=== PATIENT | male | born 1980 | race Caucasian/White ===

== ENCOUNTER → 2017-11-12 | Outpatient (CLI) | payer OTHER, MEDICAID | LOC: FIMAGING 10:46 | PROVIDERS: ATTEND Specialist | DX: Z46.6 Encounter for fitting and adjustment of urinary device (principal); Z93.9 Artificial opening status, unspecified ==

== ENCOUNTER 2017-12-09 12:51 | Observation (INO) | payer OTHER, MEDICAID ==
[~2017-12-09 12:51] MED LIST: ceFAZolin 2 GM/SWFI 2 GM/20 ML SYR IVP ONE
[2017-12-09] MEDS ORDERED: ONDANSETRON DISINTEGRATING 4 MG TAB PO ONE (12:58)
[2017-12-09 13:45] LABS: PLATELET COUNT 230 10^3/uL (150-400)
[2017-12-09] MEDS ORDERED: HYDROmorphONE/DILAUDID 2 MG/ML INJ IVP ONE (13:46)
--- NOTE | 2017-12-09 13:46 | EDPHY ---
HPI/HX/ROS/PE/MDM Narrative: CHIEF COMPLAINT: Right flank pain, nausea, fever, chills HPI: The patient is a 37 y/o male with a history of a ureteral stent placement (12/06) and ulcerative colitis complaining of right flank pain, nausea, fever, and chills. After the stent was placed, 3 days ago, he began to dry heave and have blood in his urine. He initially had pain while urinating, but it has been improving. After the stent placement, he was supposed to follow up with a urologist but was unable to due to the pain. No chest pain, shortness of breath , headache, paresthesias or numbness. REVIEW OF SYSTEMS: Aside from elements discussed in the HPI, a comprehensive 10-point review of systems was reviewed and is negative. PMH: Ureteral stent due to adhesions, ulcerative colitis, colostomy bag SOCIAL HISTORY: Lives in [place], single, not employed PHYSICAL EXAM: General: Patient is alert Appears uncomfortable and in pain. ENT: Eyes are normal to inspection. ENT inspection normal. Neck: Normal inspection. Full range of motion. Respiratory: No respiratory distress. Breath sounds normal bilaterally. Cardiovascular: Regular rate and rhythm. Strong peripheral pulses. Normal cap refill. Abdomen: Diffuse abdominal tenderness to palpation. Colostomy bag in place. There are no peritoneal signs. There are normal bowel sounds. Back: Normal to inspection. No tenderness to palpation. Skin: Normal color. No rash. Warm and dry. Extremities: Normal appearance. Full range of motion. Neuro: Oriented x3. Normal motor function. Normal sensory function. ED Course: 1436: Abdominopelvic CT ordered following abdominal x-ray findings. 1509: Patient is still having abdominal pain; additional 1mg IV Dilaudid administered. 1525: Spoke with radiologist, patient's AP CT reveals right hydronephrosis and a malfunction with the right ureteral stent. 1552: Consulted with Dr. Watson, urologist, he will consult on this patient and replace the ureteral stent today. 1554: Reassessed patient and discussed imaging findings. I have also discussed plan to replace the ureteral stent; he is comfortable with this plan. - Data Points Imaging Results: Imaging Impressions Abdomen X-Ray 12/09/17 13:46 Impression: Internalized right ureteral stent unchanged configuration since [address] 12/09/17 14:35 Impression: 1. Dysfunctional internalized right ureteral stent. Moderate to severe right hydronephrosis despite well positioned stent. No obstructing calculus or mass. 2. Right nephrolithiasis. 3. Stigmata of total colectomy. Bowel pattern within normal limits. 4. Sacroiliitis, presumably enteropathic. Findings discussed with emergency department physician, Angelo Lee MD on December 09, 2017 at 3:25 p.m. Imaging: Discussed imaging studies w/ body recall instructor Radiologist, I viewed and interpreted images myself Laboratory Results: Laboratory Results 12/09/17 13:32 12/09/17 13:32 12/09/17 12/09/17 12/09/17 14:20 13:32 13:32 WBC 6.41 10^3/uL 10^3/uL (3.80-9.50) RBC 5.59 10^6/uL 10^6/uL (4.40-6.38) Hgb 16.1 g/dL g/dL (13.7-17.5) Hct 46.0 % % (40.0-51.0) MCV 82.3 fL fL (81.5-99.8) MCH 28.8 pg pg (27.9-34.1) MCHC 35.0 g/dL g/dL (32.4-36.7) RDW 13.2 % % (11.5-15.2) Plt Count 230 10^3/uL 10^3/uL (150-400) MPV 10.0 fL fL (8.7-11.7) Neut % (Auto) 57.9 % % (39.3-74.2) Lymph % (Auto) 29.0 % % (15.0-45.0) [facility] % (Auto) 10.1 % % (4.5-13.0) Eos % (Auto) 1.6 % % (0.6-7.6) Baso % (Auto) 1.1 % % (0.3-1.7) Nucleat RBC Rel Count 0.0 % % (0.0-0.2) Absolute Neuts (auto) 3.71 10^3/uL 10^3/uL (1.70-6.50) Absolute Lymphs (auto) 1.86 10^3/uL 10^3/uL (1.00-3.00) Absolute Monos (auto) 0.65 10^3/uL 10^3/uL (0.30-0.80) Absolute Eos (auto) 0.10 10^3/uL 10^3/uL (0.03-0.40) Absolute Basos (auto) 0.07 10^3/uL 10^3/uL (0.02-0.10) Absolute Nucleated RBC 0.00 10^3/uL 10^3/uL (0-0.01) Immature Gran % 0.3 % % (0.0-1.1) Immature Gran # 0.02 10^3/uL 10^3/uL (0.00-0.10) Sodium 144 mEq/L mEq/L (135-145) Potassium 3.7 mEq/L mEq/L (3.5-5.2) Chloride 105 mEq/L mEq/L (97-110) Carbon Dioxide 26 mEq/l mEq/l (22-31) Anion Gap 13 mEq/L mEq/L (8-16) BUN 14 mg/dL mg/dL (7-23) Creatinine 1.0 mg/dL mg/dL (0.7-1.3) Estimated GFR > 60 Glucose 83 mg/dL mg/dL (70-100) Calcium 8.7 mg/dL mg/dL (8.5-10.4) Urine Color YELLOW Urine Appearance CLEAR Urine pH 6.0 (5.0-7.5) Ur Specific [place] 1.013 (1.002-1.030) Urine Protein NEGATIVE (NEGATIVE) Urine Ketones NEGATIVE (NEGATIVE) Urine Blood 2+ H (NEGATIVE) Urine Nitrate NEGATIVE (NEGATIVE) Urine Bilirubin NEGATIVE (NEGATIVE) Urine Urobilinogen NEGATIVE EU EU (0.2-1.0) Ur Leukocyte Esterase TRACE H (NEGATIVE) Urine RBC 10-15 /hpf H /hpf (0-3) Urine WBC 15-25 /hpf H /hpf (0-3) Ur Epithelial Cells TRACE /lpf /lpf (NONE-1+) Urine Mucus TRACE /lpf /lpf (NONE-1+) Urine Glucose NEGATIVE (NEGATIVE) Medications Given: Discontinued Medications Hydromorphone HCl (Dilaudid) 1 mg IVP EDNOW ONE Stop: 12/09/17 13:47 Last Admin: 12/09/17 13:56 Dose: 1 mg Hydromorphone HCl (Dilaudid) 1 mg IVP EDNOW ONE Stop: 12/09/17 15:09 Last Admin: 12/09/17 15:10 Dose: 1 mg Ondansetron HCl (Zofran Odt) 4 mg PO EDNOW ONE Stop: 12/09/17 12:59 Last Admin: 12/09/17 13:00 Dose: 4 mg General Time Seen by Provider: 12/09/17 13:37 Initial Vital Signs: Initial Vital Signs Temperature (C) 37.0 C 12/09/17 12:53 Heart Rate 94 12/09/17 12:53 Respiratory Rate 18 12/09/17 12:53 Blood Pressure 150/107 H 12/09/17 12:53 O2 Sat (%) 99 12/09/17 12:53 O2 Delivery Mode Room Air Allergies/Adverse Reactions: Sulfa (Sulfonamide Antibiotics) Allergy (Severe, Verified 12/09/17 20:08) Swelling/neck,face,throat latex [Latex] Allergy (Intermediate, Verified 12/09/17 20:08) Rash Penicillins Allergy (Intermediate, Verified 12/09/17 20:08) Other-Enter Comments pseudoephedrine [Pseudoephedrine] Allergy (Intermediate, Verified 12/09/17 20:08 ) Other-Enter Comments Home Medications: Medication Instructions Recorded DULoxetine [Cymbalta 60 MG (*)] 60 mg PO HS 07/26/09 Departure - Departure Disposition: To OP Cath/Surgery Clinical Impression: Ureteral stent displacement Qualifiers: Encounter type: initial encounter Qualified Code(s): T83.122A - Displacement of indwelling ureteral stent, initial encounter Hydronephrosis Qualifiers: Hydronephrosis type: unspecified Qualified Code(s): N13.30 - Unspecified hydronephrosis Report Scribed for: Angelo Lee Report Scribed by: Corazon Sexton Date of Report: 12/09/17 Time of Report: 13:39 Physician Review and Approval Statement: Portions of this note were transcribed by an ED scribe. I personally performed the history, physical exam, and medical decision making; and confirm the accuracy of the information in the transcribed note.
[2017-12-09] MEDS ORDERED: IOPAMIDOL (ISOVUE-300) 100 ML BTL ONE (14:42)
[2017-12-09] MEDS ORDERED: HYDROmorphONE/DILAUDID 2 MG/ML INJ ONE (15:07)
[2017-12-09] MEDS ORDERED: HYDROmorphONE/DILAUDID 1 MG/ML INJ IVP ONE (15:08)
[2017-12-09] MEDS ORDERED: IOPAMIDOL (ISOVUE-300) 150 ML BTL ONE (16:36)
[2017-12-09] MEDS ORDERED: ceFAZolin 2 GM/DEXTROSE 100 ML IV ONE ×2 (16:38→17:00)
[2017-12-09] MEDS ORDERED: ceFAZolin 2 GM/SWFI 20 ML SYR IVP ONE (16:46)
[2017-12-09] MEDS ORDERED: MIDAZOLAM 2 MG/2 ML VIAL IVP ONE (16:51)
--- NOTE | 2017-12-09 16:51 | PDANEPAE ---
ANE History of Present Illness Ureter stent change ANE Past Medical History - Pulmonary History Hx Oxygen in Use at Home: No Hx Sleep Apnea: No - Endocrine History Hx Diabetes: No ANE Review of Systems Review of Systems: ANE Patient History - Allergies Allergies/Adverse Reactions: latex [Latex] Allergy (Verified 07/26/09 13:25) Penicillins Allergy (Verified 07/26/09 13:25) pseudoephedrine [Pseudoephedrine] Allergy (Verified 07/26/09 13:25) Sulfa (Sulfonamide Antibiotics) Allergy (Verified 07/26/09 13:25) - Home Medications Home Medications: Cymbalta 07/26/09 [Last Taken Unknown] METRONIDAZOLE 07/26/09 [Last Taken Unknown] - NPO status NPO Since - Liquids (Date): 12/09/17 NPO Since - Liquids (Time): 12:00 NPO Since - Solids (Date): 11/30/17 NPO Since - Solids (Time): 21:00 - Smoking Hx Smoking Status: Never smoked ANE Labs/Vital Signs - Labs Result Diagrams: 12/09/17 13:32 12/09/17 13:32 - Vital Signs Blood Pressure: 144/114 Heart Rate: 78 Respiratory Rate: 18 O2 Sat (%): 96 Height: 182.88 cm Weight: 70.307 kg ANE Physical Exam - Airway Neck exam: FROM Mallampati Score: Class 2 Mouth exam: normal dental/mouth exam - Pulmonary Pulmonary: no respiratory distress - Cardiovascular Cardiovascular: regular rate and rhythym - ASA Status ASA Status: II, E ANE Anesthesia Plan Anesthesia Plan: GA w LMA
[2017-12-09] MEDS ORDERED: MIDAZOLAM 2 MG/2 ML VIAL ONE (16:59)
[2017-12-09] MEDS ORDERED: LIDOCAINE 2% 5 ML SDV ONE (17:03)
[2017-12-09] MEDS ORDERED: fentaNYL 100 MCG/2 ML INJ ONE ×2 (17:04→18:11)
[2017-12-09] MEDS ORDERED: PROPOFOL 200 MG/20 ML VIAL ONE (17:05)
--- NOTE | 2017-12-09 17:11 | GCON ---
[f rep st] CONSULTATION DATE OF CONSULTATION: 12/09/2017 REFERRING PHYSICIAN: Angelo Lee MD REASON FOR CONSULTATION: I am asked to evaluate this 37-year-old male with chronic right ureteral ob struction secondary to ulcerative colitis. Presented to the emergency room with right-sided flank pa in and what appears to be an obstructed stent. Patient has chronic stent changes by Dr. Jones. Most recently had his stent changed this past Sunday. He has had hematuria and right flank pain since t he procedure, and today presented to the emergency department. PAST MEDICAL HISTORY: Positive for ulcerative colitis. REVIEW OF SYSTEMS: Negative except as above. EXAM: GENERAL: He is uncomfortable but in no acute distress. LUNGS: Clear. HEART: Rate is regul ar. ABDOMEN: Diffuse tenderness. There is a colostomy bag in place. EXTREMITIES: He has no perip heral edema. NEURO: No gross neurologic deficits. DATA REVIEWED: CT scan showed severe right hydronephrosis, although the stent appears to be well pos itioned. He does have right nephrolithiasis. His white count is normal. Creatinine is 1.0. IMPRESSION: Right flank pain, presumably due to obstructed stent. PLAN: I discussed options with the patient and have elected to proceed with right ureteral stent rep lacement. He would like to be watched overnight to make sure he does not have the same problem. Ris ks of the procedure were discussed, and he consented to proceed. /[id number]/MODL
[2017-12-09] MEDS ORDERED: ONDANSETRON 4 MG/2 ML VIAL ONE (17:24)
[2017-12-09] MEDS ORDERED: DEXAMETHASONE 4 MG/ML VIAL ONE (17:24)
[2017-12-09] MEDS ORDERED: ZOLPIDEM TARTRATE 5 MG TAB PO PRN (17:37)
[2017-12-09] MEDS ORDERED: ONDANSETRON 4 MG/2 ML VIAL IVP PRN ×2 (17:37→17:49)
[2017-12-09] MEDS ORDERED: ACETAMINOPHEN 325 MG TAB PO PRN (17:37)
[2017-12-09] MEDS ORDERED: ONDANSETRON DISINTEGRATING 4 MG TAB PO PRN (17:37)
--- NOTE | 2017-12-09 17:44 | POSTOPPROG ---
Post Op Note Date of Operation: 12/09/17 Surgeon: Ceferino Watson Pre-op Diagnosis: Right ureteral obstruction Post-op Diagnosis: same Procedure: cystoscopy, right ureteral stent exchange Inf/Abcess present in the surg proc area at time of surgery?: No EBL: Minimal
[2017-12-09] MEDS ORDERED: D5W 1/2 NS 1,000 ML IV SCH (17:45)
[2017-12-09] MEDS ORDERED: fentaNYL 100 MCG/2 ML INJ IVP PRN (17:49)
[2017-12-09] MEDS ORDERED: PROMETHAZINE HCL 25 MG/ML INJ IVP PRN (17:49)
[2017-12-09] MEDS ORDERED: NALOXONE HCL 0.4 MG/ML INJ IVP PRN (17:49)
--- NOTE | 2017-12-09 17:50 | POSTANESTH ---
Post Anesthetic Evaluation Cardiovascular Status: Normal, Stable Respiratory Status: Normal, Stable Level of Consciousness/Mental Status: Can Participate in Eval Pain Control: Adequate, Prn Tx Ordered Nausea/Vomiting Control: Adequate, Prn Tx Ordered Complications Possibly Related to Anesthesia: None Noted
--- NOTE | 2017-12-09 18:06 | GOP ---
[f rep st] OPERATIVE REPORT DATE OF OPERATION: 12/09/2017 SURGEON: Ceferino Watson MD PREOPERATIVE DIAGNOSIS: Right ureteral obstruction. POSTOPERATIVE DIAGNOSIS: Right ureteral obstruction. PROCEDURE PERFORMED: Cystoscopy with exchange of right ureteral stent. FINDINGS: INDICATIONS: The patient is a 37-year-old male with chronic right ureteral obstruction secondary to ulcerative colitis. He had a right ureteral stent change by Dr. Isaak Jones last Sunday, but has hernandez d ongoing pain. He came to the emergency department today, where a CT scan showed moderate to high-g rade obstruction on the right. The patient did have hematuria after the procedure. After discussing options, he elected to come in for a stent exchange. DESCRIPTION OF PROCEDURE: After informed consent and with general endotracheal anesthesia, the patie nt was placed in the lithotomy position with his genitalia sterilely prepped and draped. Cystoscopy was carried out. The previously placed stent was removed. A Sensor guidewire was passed into the ri ght renal pelvis under fluoroscopic control. Contrast was still opacifying the upper collecting syst em. A 7-Uzbek multi-length stent was then placed under fluoroscopic control. The cystoscope was re moved after emptying the bladder, the patient was awakened, and transferred to the recovery room in s table condition. There were no intraoperative complications, specimens, or blood loss. /[id number]/MODL
[2017-12-09] MEDS: HYDROmorphONE/DILAUDID 2 MG/ML INJ IVP PRN ×2 (18:58→23:17)
[2017-12-09] MEDS: HYDROCODONE/APAP 5/325 TAB PO PRN (20:09)
[2017-12-10] MEDS: HYDROCODONE/APAP 5/325 TAB PO PRN ×3 (00:30→09:06)
[2017-12-10] MEDS: HYDROmorphONE/DILAUDID 2 MG/ML INJ IVP PRN (07:31)
[2017-12-10 08:01] VITALS: RESP 14; TEMP 98.4
[2017-12-10 11:14] VITALS: BP 151/100; PULSE 99; O2SAT 95
--- NOTE | 2017-12-10 13:10 | SOAPPROG ---
TOBI Progress Note Assessment/Plan: Assessment: Hydronephrosis Acute Ureteral stent displacement Acute Plan: dced home prior to visit this AM 12/10/17 13:08 Subjective: pt gone Objective: Vital Signs Temp Pulse Resp BP Pulse Ox 36.9 C 99 14 151/100 H 95 12/10/17 11:13 12/10/17 11:13 12/10/17 11:13 12/10/17 11:13 12/10/17 11:13 12/09/17 12/10/17 12/11/17 05:59 05:59 05:59 Intake Total 2465 500 Output Total 500 Balance 1965 500 Physical Exam - Physical Exam General Appearance: other (pt discharged prior to visit) ICD10 Worksheet Patient Problems: Problems Problem Status Onset Hydronephrosis Acute Ureteral stent displacement Acute
--- NOTE | 2017-12-10 13:33 | ASMTCMCOM ---
CM Note CM Note Notes: Pt was admitted with R ureteral obstruction and is s/p cystoscopy and ureteral stent exchange. This is a repeat change as he had a stent change this past Sunday and presented to the ED with R flank pain. He has a hx of ulcerative colitis with chronic stent changes. Pt is discharging home today. His RN asked CM to speak with him after pt revealed he suffers from depression and drinks alchohol to assuage his pain. Spoke with pt who admits to drinking and driving. He has been on Cymbalta in the past. He stated he has "burned bridges" at [facility] and with his former urologist and PCP (who prescribed his Cymbalta).He admits he left a message for his PCP in which he yelled. He has a chronic condition and an ostomy and states he is in pain and doesn't think it's too much to ask for pain meds. He lives in [place] and does not have a PCP or a urologist. He was tearful while presenting his situation. He apparently lives with his mother who is 70 and has had a leg amputated. He is not able to provide any care to her. He is on Medicare disability for his ulcerative colitis and has Medicaid. Provided him with information about the [facility] and encouraged him to see if he is eligible for any of their services or can at least provide him with referrals for urologists in the [place] area. Date Signed: 12/10/2017 01:32 PM Electronically Signed By:KAUSHAL Krishnan
--- NOTE | 2017-12-10 13:36 | ASDISCHSUM ---
Discharge Information Plan Status:Home with No Needs Medically Cleared to Leave:12/10/2017 Discharge Date:12/10/2017 12:33 PM CM D/C Disposition:Home, Routine, Self-Care ADT D/C Disposition:Home, Routine, Self-Care Projected Discharge Date:12/10/2017 12:33 PM Transportation at D/C:Self Discharge Delay Reason: Follow-Up Date:12/10/2017 12:33 PM Discharge Slot: Final Diagnosis: Placement Information Patient Contact Information Contact Name:KIMBERLYBen Relationship:Sister Address: Work Phone: City: [facility] Phone: State/[employer] Code: Email: Financial Information Financial Class:Medicare Advantage Plans Primary Plan Desc:[facility] rumr: turn off the lights Primary Plan Number:[id number] Secondary Plan Desc:MEDICAID [employer] [place] Secondary Plan Number:[id number] Assessment Information LACE LACE Length of stay for Answers: Less than 1 day current admission Acuity / Level of Answers: No Care: Did the patient have an inpatient admission? Comorbidities - select Answers: Other Notes: ulcerative all that apply colitis; colostomy # of Emergency department Answers: 1-2 visits in the last 6 months Social determinants Answers: Mental health diagnosis (anxiety, depression, pers onality disorders, etc.) Lack of community resources and/or lack of social support (no pcp, lives alone, transportation, trina d) Score: 9 Date Signed: 12/10/2017 01:34 PM Electronically Signed By:KAUSHAL Krishnan [facility] NIKOLAY Progress Note NIKOLAY Harvey CM Note Notes: Pt was admitted with R ureteral obstruction and is s/p cystoscopy and ureteral stent exchange. This is a repeat change as he had a stent change this past Afia and presented to the ED with R flank pain. He has a hx of ulcerative colitis with chronic stent changes. Pt is discharging home today. His RN asked CM to speak with him after pt revealed he suffers from depression and drinks alchohol to assuage his pain. Spoke with pt who admits to drinking and driving. He has been on Cymbalta in the past. He stated he has "burned bridges" at [facility] and with his former urologist and PCP (who prescribed his Cymbalta).He admits he left a message for his PCP in which he yelled. He has a chronic condition and an ostomy and states he is in pain and doesn't think it's too much to ask for pain meds. He lives in [place] and does not have a PCP or a urologist. He was tearful while presenting his situation. He apparently lives with his mother who is 70 and has had a leg amputated. He is not able to provide any care to her. He is on Medicare disability for his ulcerative colitis and has Medicaid. Provided him with information about the [facility] and encouraged him to see if he is eligible for any of their services or can at least provide him with referrals for urologists in the [place] area. Date Signed: 12/10/2017 01:32 PM Electronically Signed By:KAUSHAL Krishnan Intervention Information Intervention Type:*YESI-Signed Date of Service:12/10/2017 11:00 AM Patient Type:Observation Staff Member:Homa Cruz Hours: Discipline: Severity: Comment:
--- NOTE | 2017-12-10 15:36 | GDS ---
[f rep st] DISCHARGE SUMMARY DISCHARGE PHYSICIAN: Ceferino Watson MD DISCHARGE DIAGNOSIS: Right ureteral obstruction. PROCEDURES: Cystoscopy with right ureteral stent exchange. REASON FOR ADMISSION: The patient is a 37-year-old male with chronic right ureteral obstruction, man aged with stent changes. He came to the emergency department on the day of admission with ongoing fl ank pain since his last stent was replaced on the previous Sunday by Dr. Isaak Jones. CT scan showe d moderate to severe hydronephrosis. So, after discussing options, he elected to come in for stent r emoval and exchange. This was performed without complications. Patient had no ride home, so was bro ught in for overnight observation. He did well overnight and was felt stable for discharge. There w ere no additional discharge prescriptions being sent. He is to resume home medications. He is to fo llow up with Dr. Jones for future stent changes. There were no complications during the stay. /[id number]/MODL
== END 2017-12-10 12:33 | disposition home or self-care (01) ==
LOC: FSGY 16:48 → F1N 17:14
PROVIDERS: ADMIT Urology; ATTEND Urology
PROC: 0T768DZ Dilation of Right Ureter with Intraluminal Device, Via Natural or Artificial Opening Endoscopic (ICD-10-PCS; principal; 2017-12-09 16:30)
DX: T83.122A Displacement of indwelling ureteral stent, initial encounter (principal); N13.0 Hydronephrosis with ureteropelvic junction obstruction; K51.918 Ulcerative colitis, unspecified with other complication; N20.0 Calculus of kidney; Z88.2 Allergy status to sulfonamides; Z88.0 Allergy status to penicillin
CPT/HCPCS: 52332; 74018; 74177; 76000; C1769; C2625; G0378; J0690; J1100; J1170; J2250; J2405; J2704; J3010; Q9967